=== PATIENT | female | born 1945 | race Caucasian/White ===

== ENCOUNTER → 2019-12-07 08:47 | Outpatient (BNVA) | payer MEDICARE, OTHER, SELFPAY | PROVIDERS: Family Provider Family Medicine; PCP Family Medicine; Visit Provider Internal Medicine Rheumatology | DX: M05.741 Rheumatoid arthritis with rheumatoid factor of right hand without organ or systems involvement (principal); M05.742 Rheumatoid arthritis with rheumatoid factor of left hand without organ or systems involvement; Z79.899 Other long term (current) drug therapy; Z11.59 Encounter for screening for other viral diseases; Z72.89 Other problems related to lifestyle | CPT/HCPCS: 36415; 80076; 82565; 85025; 85651; 86140; 86704 ==

== ENCOUNTER → 2019-12-07 08:59 | Outpatient (BNVA) | payer MEDICARE, OTHER, SELFPAY | PROVIDERS: Family Provider Family Medicine; PCP Family Medicine | DX: M05.741 Rheumatoid arthritis with rheumatoid factor of right hand without organ or systems involvement (principal); M05.742 Rheumatoid arthritis with rheumatoid factor of left hand without organ or systems involvement; Z79.899 Other long term (current) drug therapy | CPT/HCPCS: 85025 ==

== ENCOUNTER → 2020-01-21 09:54 | Outpatient (BNVA) | payer MEDICARE, OTHER, SELFPAY | PROVIDERS: Family Provider Family Medicine; PCP Family Medicine; Visit Provider Internal Medicine Rheumatology | DX: D72.819 Decreased white blood cell count, unspecified (principal); M05.741 Rheumatoid arthritis with rheumatoid factor of right hand without organ or systems involvement; M05.742 Rheumatoid arthritis with rheumatoid factor of left hand without organ or systems involvement | CPT/HCPCS: 36415; 85025 ==

== ENCOUNTER → 2020-03-01 09:20 | Outpatient (BNVA) | payer MEDICARE, OTHER, SELFPAY | PROVIDERS: Family Provider Family Medicine; PCP Family Medicine; Visit Provider Internal Medicine Rheumatology | DX: Z79.899 Other long term (current) drug therapy (principal) | CPT/HCPCS: 36415; 80076; 82565; 85651; 86140 ==

== ENCOUNTER → 2020-03-08 10:53 | Outpatient (BNVA) | payer MEDICARE, OTHER, SELFPAY | PROVIDERS: Family Provider Family Medicine; PCP Family Medicine; Visit Provider Internal Medicine | DX: M06.9 Rheumatoid arthritis, unspecified (principal); M35.3 Polymyalgia rheumatica | CPT/HCPCS: 99213 ==

== ENCOUNTER → 2020-05-23 10:10 | Outpatient (BNVA) | payer MEDICARE, OTHER, SELFPAY | PROVIDERS: Family Provider Family Medicine; PCP Family Medicine; Visit Provider Internal Medicine | DX: M06.9 Rheumatoid arthritis, unspecified (principal); Z79.899 Other long term (current) drug therapy | CPT/HCPCS: 36415; 80053; 85025; 85651 ==

== ENCOUNTER → 2020-05-30 09:55 | Outpatient (BNVA) | payer MEDICARE, OTHER, SELFPAY | PROVIDERS: Family Provider Family Medicine; PCP Family Medicine; Visit Provider Internal Medicine | DX: M06.9 Rheumatoid arthritis, unspecified (principal); Z79.899 Other long term (current) drug therapy; Z79.52 Long term (current) use of systemic steroids | CPT/HCPCS: 99213 ==

== ENCOUNTER → 2020-08-15 11:18 | Outpatient (BNVA) | payer MEDICARE, OTHER, SELFPAY | PROVIDERS: Family Provider Family Medicine; PCP Family Medicine; Visit Provider Internal Medicine Rheumatology | DX: Z79.899 Other long term (current) drug therapy (principal) | CPT/HCPCS: 36415; 80053; 85025 ==

== ENCOUNTER → 2020-09-18 11:08 | Outpatient (BNVA) | payer MEDICARE, OTHER, SELFPAY | PROVIDERS: Family Provider Family Medicine; PCP Family Medicine; Visit Provider Internal Medicine | DX: M06.9 Rheumatoid arthritis, unspecified (principal); Z79.52 Long term (current) use of systemic steroids; Z79.899 Other long term (current) drug therapy | CPT/HCPCS: 99213 ==

== ENCOUNTER 2021-01-03 12:47 | Outpatient (CLI) | payer MEDICARE, OTHER, SELFPAY ==
[2021-01-03 14:22] LABS: Basophils # 0.1 10^3/uL (0.0-0.1); Basophils % 1.6 %; Eosinophils # 0.1 10^3/uL (0.0-0.8); Eosinophils % 3.7 %; Hematocrit 38.7 % (37.0-47.0); Hemoglobin 12.5 g/dL (11.5-15.3); Lymphocytes # 0.9 10^3/uL (0.8-4.8); Lymphocytes % 23.4 %; Mean Corpuscular HGB Conc 32.3 g/dL (30.0-36.0); Mean Corpuscular Hemoglobin 30.1 pg (28.0-34.0); Mean Corpuscular Volume 93.3 fL (81-99); Mean Platelet Volume 9.4 fL (7.4-10.4); Monocytes # 0.3 10^3/uL (0.2-0.9); Monocytes % 8.4 %; Neutrophils # 2.38 10^3/uL (1.8-7.7); Neutrophils % 62.6 %; Nucleated Red Blood Cells % 0 %; Platelet Count 287 10^3/cmm (130-400); Red Blood Count 4.15 10^6/uL (4.1-5.3); Red Cell Distribution Width 12.9 % (12.1-15.1); White Blood Count 3.8 10^3/uL (4.0-10.0)
[2021-01-03 14:32] LABS: Alanine Aminotransferase 10 U/L (0-33); Albumin Level 4.8 g/dL (3.5-5.2); Alkaline Phosphatase 72 IU/L (35-105); Anion Gap 11.7 (5-19); Aspartate Amino Transferase 18 U/L (0-32); Blood Urea Nitrogen 9 mg/dL (8-23); Calcium 9.4 mg/dL (8.5-10.5); Carbon Dioxide 30 mmol/L (22-29); Chloride 97 mmol/L (98-107); Globulin 2.6 g/dL (1.3-4.6); Glucose 94 mg/dL (65-115); Osmolality Calculated 278 mOsm/kg (285-295); Potassium 3.7 mmol/L (3.5-5.1); Sodium 135 mmol/L (136-145); Total Bilirubin 0.5 mg/dL (0.15-1.2); Total Protein 7.4 g/dL (6.6-8.7)
[2021-01-03 15:59] LABS: Erythrocyte Sedimentation Rate 20 mm/hr (0-15)
== END 2021-01-03 12:48 | disposition home or self-care (01) ==
PROVIDERS: PCP Family Medicine; Visit Provider Internal Medicine
DX: M06.9 Rheumatoid arthritis, unspecified (principal); Z79.899 Other long term (current) drug therapy
CPT/HCPCS: 36415; 80053; 85025; 85651

== ENCOUNTER → 2021-01-09 13:34 | Outpatient (BNVA) | payer MEDICARE, OTHER, SELFPAY | PROVIDERS: PCP Family Medicine; Visit Provider Internal Medicine | DX: M06.9 Rheumatoid arthritis, unspecified (principal); H20.9 Unspecified iridocyclitis; Z79.899 Other long term (current) drug therapy; D72.819 Decreased white blood cell count, unspecified | CPT/HCPCS: 99214 ==

== ENCOUNTER → 2021-03-19 12:50 | Outpatient (BNVA) | payer MEDICARE, OTHER, SELFPAY | PROVIDERS: PCP Family Medicine; Visit Provider Internal Medicine | DX: D72.819 Decreased white blood cell count, unspecified (principal); H20.9 Unspecified iridocyclitis; M06.9 Rheumatoid arthritis, unspecified; Z79.899 Other long term (current) drug therapy | CPT/HCPCS: 36415; 80053; 82607; 84443; 85025; 85651; 86140 ==

== ENCOUNTER → 2021-03-28 09:44 | Outpatient (BNVA) | payer MEDICARE, OTHER, SELFPAY | PROVIDERS: PCP Family Medicine; Visit Provider Internal Medicine | DX: M06.9 Rheumatoid arthritis, unspecified (principal); G35 Multiple sclerosis; D72.819 Decreased white blood cell count, unspecified; Z79.899 Other long term (current) drug therapy; Z79.52 Long term (current) use of systemic steroids | CPT/HCPCS: 99213; 99214 ==

== ENCOUNTER → 2021-07-05 08:58 | Outpatient (BNVA) | payer MEDICARE, OTHER, SELFPAY | PROVIDERS: PCP Family Medicine; Visit Provider Internal Medicine | DX: D72.819 Decreased white blood cell count, unspecified (principal); M06.9 Rheumatoid arthritis, unspecified; Z79.899 Other long term (current) drug therapy | CPT/HCPCS: 36415; 80053; 85025; 85651; 86140 ==

== ENCOUNTER → 2021-07-16 10:02 | Outpatient (BNVA) | payer MEDICARE, OTHER, SELFPAY | PROVIDERS: PCP Family Medicine; Visit Provider Internal Medicine | DX: M06.9 Rheumatoid arthritis, unspecified (principal); Z79.899 Other long term (current) drug therapy; H20.9 Unspecified iridocyclitis; G35 Multiple sclerosis | CPT/HCPCS: 99213; 99214 ==

== ENCOUNTER → 2021-09-26 12:49 | Outpatient (BNVA) | payer MEDICARE, OTHER, SELFPAY | PROVIDERS: PCP Family Medicine; Visit Provider Internal Medicine | DX: M06.9 Rheumatoid arthritis, unspecified (principal); H20.9 Unspecified iridocyclitis; Z79.899 Other long term (current) drug therapy; D72.819 Decreased white blood cell count, unspecified; G35 Multiple sclerosis; R70.0 Elevated erythrocyte sedimentation rate | CPT/HCPCS: 99214 ==

== ENCOUNTER → 2021-12-26 12:10 | Outpatient (BNVA) | payer MEDICARE, OTHER, SELFPAY | PROVIDERS: PCP Family Medicine; Visit Provider Internal Medicine | DX: M06.9 Rheumatoid arthritis, unspecified (principal); H20.9 Unspecified iridocyclitis; D72.819 Decreased white blood cell count, unspecified; Z79.899 Other long term (current) drug therapy | CPT/HCPCS: 99214 ==

== ENCOUNTER → 2022-04-01 13:24 | Outpatient (BNVA) | payer MEDICARE, OTHER, SELFPAY | PROVIDERS: PCP Family Medicine; Visit Provider Internal Medicine | DX: M06.9 Rheumatoid arthritis, unspecified (principal); H20.9 Unspecified iridocyclitis; D72.819 Decreased white blood cell count, unspecified; G35 Multiple sclerosis; R79.89 Other specified abnormal findings of blood chemistry; Z79.899 Other long term (current) drug therapy | CPT/HCPCS: 99214 ==

== ENCOUNTER 2022-04-26 14:33 | Outpatient (CLI) | payer MEDICARE, OTHER, SELFPAY ==
--- NOTE | 2022-04-26 14:38 | XR_ITS ---
WS: [id number] DEXA (DUAL ENERGY X-RAY ABSORPTIOMETRY) Bone mineral density was performed using a [employer] machine. HISTORY: POSTMENOPAUSAL COMPARISON: 04/18/2017 Lumbar spine BMD (L1-L4): 0.827 g/cm2 T score: -2.9 Z score: -1.0 Total hip BMD: Left: 0.584 g/cm2. T score: -3.4 Z score: -1.5 Right: 0.591 g/cm2. T score: -3.3 Z score: -1.5 10 year probability of a major osteoporotic fracture is 32%. Compared to the prior study from 04/18/2017. Lumbar spine bone mineral density has decreased by 13.2%. Bilateral hips bone mineral density has decreased by 14.9%. XR/XR DEXA axial skeleton* [id number] IMPRESSION: OSTEOPOROSIS based upon the WHO classification for females. Significant decreas e in bone mineral density since the prior examination in both the hips and lumb ar spine.
== END 2022-04-26 14:34 | disposition home or self-care (01) ==
LOC: RAD 14:33
PROVIDERS: PCP Family Medicine; Visit Provider Family Medicine
DX: Z78.0 Asymptomatic menopausal state (principal); M81.0 Age-related osteoporosis without current pathological fracture
CPT/HCPCS: 77080

== ENCOUNTER → 2022-07-31 12:54 | Outpatient (BNVA) | payer MEDICARE, OTHER, SELFPAY | PROVIDERS: PCP Family Medicine; Visit Provider Internal Medicine | DX: M06.9 Rheumatoid arthritis, unspecified (principal); H20.9 Unspecified iridocyclitis; D72.819 Decreased white blood cell count, unspecified; G35 Multiple sclerosis; Z79.899 Other long term (current) drug therapy; M81.0 Age-related osteoporosis without current pathological fracture; R53.83 Other fatigue | CPT/HCPCS: 99213 ==

== ENCOUNTER → 2023-02-12 10:05 | Outpatient (BNVA) | payer MEDICARE, OTHER, SELFPAY | PROVIDERS: PCP Family Medicine; Visit Provider Internal Medicine | DX: Z79.899 Other long term (current) drug therapy (principal); H20.9 Unspecified iridocyclitis; D72.819 Decreased white blood cell count, unspecified; G35 Multiple sclerosis; M81.0 Age-related osteoporosis without current pathological fracture; M06.9 Rheumatoid arthritis, unspecified | CPT/HCPCS: 99214 ==

== ENCOUNTER 2023-06-16 07:32 | Oncology outpatient (recurring) (ONCR) | payer MEDICARE, OTHER, SELFPAY ==
[2023-06-16 07:52] VITALS: BP 150/65; PULSE 74; RESP 17; TEMP 36.2; O2SAT 96
[2023-06-16] MEDS: denosumab 60 mg SDV SUBCUT (08:07)
[2023-06-16 08:12] VITALS: BP 150/68; PULSE 74; RESP 17; TEMP 36.2; O2SAT 96
== END 2023-06-21 23:59 | disposition home or self-care (01) ==
LOC: ONCMED 07:33
PROVIDERS: PCP Family Medicine; Visit Provider Family Medicine
DX: M81.0 Age-related osteoporosis without current pathological fracture (principal)
CPT/HCPCS: 96402; J0897

== ENCOUNTER → 2023-08-18 10:02 | Outpatient (BNVA) | payer MEDICARE, OTHER, SELFPAY | PROVIDERS: PCP Family Medicine; Visit Provider Internal Medicine | DX: H20.9 Unspecified iridocyclitis (principal); D72.819 Decreased white blood cell count, unspecified; G35 Multiple sclerosis; Z79.899 Other long term (current) drug therapy; M81.0 Age-related osteoporosis without current pathological fracture; M06.9 Rheumatoid arthritis, unspecified | CPT/HCPCS: 99214 ==

== ENCOUNTER 2023-12-15 09:21 | Oncology outpatient (recurring) (ONCR) | payer MEDICARE, OTHER, SELFPAY ==
[2023-12-15] MEDS: denosumab 60 mg SDV SUBCUT (09:42)
== END 2023-12-21 23:59 | disposition home or self-care (01) ==
PROVIDERS: PCP Family Medicine; Visit Provider Family Medicine
DX: M81.0 Age-related osteoporosis without current pathological fracture (principal)
CPT/HCPCS: 96372; J0897

== ENCOUNTER 2024-07-08 08:21 | Oncology outpatient (recurring) (ONCR) | payer MEDICARE, OTHER, SELFPAY ==
[2024-07-08] MEDS: denosumab 60 mg SDV SUBCUT (08:41)
== END 2024-07-22 23:59 | disposition home or self-care (01) ==
PROVIDERS: PCP Family Medicine; Visit Provider Family Medicine
DX: M81.0 Age-related osteoporosis without current pathological fracture (principal); Z79.899 Other long term (current) drug therapy
CPT/HCPCS: 96372; J0897

== ENCOUNTER 2025-01-07 08:12 | Oncology outpatient (recurring) (ONCR) | payer MEDICARE, OTHER, SELFPAY ==
[2025-01-07] MEDS: denosumab 60 mg SDV SUBCUT (08:42)
== END 2025-01-19 23:59 | disposition home or self-care (01) ==
PROVIDERS: PCP Family Medicine; Visit Provider Family Medicine
DX: M81.0 Age-related osteoporosis without current pathological fracture (principal); Z79.899 Other long term (current) drug therapy
CPT/HCPCS: 96372; J0897

== ENCOUNTER 2025-07-06 08:05 | Oncology outpatient (recurring) (ONCR) | payer MEDICARE, OTHER, SELFPAY ==
[2025-07-06] MEDS: denosumab 60 mg SDV (Infusion Clinic Only) SUBCUT (08:25)
== END 2025-07-22 23:59 | disposition home or self-care (01) ==
LOC: ONCMED 08:06
PROVIDERS: PCP Family Medicine; Visit Provider Family Medicine
DX: M81.0 Age-related osteoporosis without current pathological fracture (principal); Z79.899 Other long term (current) drug therapy
CPT/HCPCS: 96372; J0897